=== PATIENT | female | born 1955 | race Caucasian/White ===

== ENCOUNTER 2017-09-28 15:39 | Emergency (ER) | payer MEDICAID ==
[~2017-09-28] VITALS: Ht 162.6 cm; Wt 66.3 kg
[2017-09-28] MEDS ORDERED: morphine 4 MG/ML inj SYRINge IM ONE (16:05)
[2017-09-28] MEDS ORDERED: ketorolac trometh inj. 60 MG/2 ML VIAL IM ONE (16:05)
[2017-09-28] MEDS ORDERED: orphenadrine citrate 60mg/2ml inj. IM ONE (16:05)
[2017-09-28] MEDS ORDERED: OXYC-150 PO (18:17)
[2017-09-28] MEDS ORDERED: ORPH100T2 PO (18:17)
[2017-09-28 18:40] VITALS: BP 130/74
== END 2017-09-28 18:42 | disposition home or self-care (01) ==
LOC: ER 15:40
DX: M54.5 Low back pain (principal); G89.29 Other chronic pain; F17.200 Nicotine dependence, unspecified, uncomplicated; Z88.8 Allergy status to other drugs, medicaments and biological substances; Z79.899 Other long term (current) drug therapy
CPT/HCPCS: 96372; 99284; J1885; J2270; J2360

== ENCOUNTER 2017-11-05 08:28 | Emergency (ER) | payer MEDICAID ==
[~2017-11-05] VITALS: Ht 162.6 cm; Wt 77.0 kg
[~2017-11-05 08:28] MED LIST: ORPH100T2 PO; OXYC-150 PO
[2017-11-05 08:45] VITALS: BP 142/104
[2017-11-05] MEDS ORDERED: dexamethasone sod phosphate 10mg/ml inj IM STA (09:19)
[2017-11-05] MEDS ORDERED: ketorolac trometh inj. 60 MG/2 ML VIAL IM ONE (09:20)
== END 2017-11-05 10:18 | disposition home or self-care (01) ==
LOC: ER 08:28
DX: G89.29 Other chronic pain (principal); M54.5 Low back pain; Z88.8 Allergy status to other drugs, medicaments and biological substances
CPT/HCPCS: 96372; 99284; J1100; J1885

== ENCOUNTER 2021-07-19 11:43 | Emergency (ER) | payer MEDICARE, MEDICAID ==
[~2021-07-19] VITALS: Ht 165.1 cm; Wt 80.0 kg
[2021-07-19] MEDS ORDERED: glucagon, human recombinant 1mg kit IV ONE (14:35)
[2021-07-19] MEDS ORDERED: LORazepam 2 mg/ml vial IV ONE (14:45)
[2021-07-19 15:02] LABS: BASOPHILS % (AUTO) 0.5 % (0-1); EOSINOPHILS % (AUTO) 0.5 % (0-6); HEMATOCRIT 44.8 % (35.0-45.0); HEMOGLOBIN 15.3 g/dl (12.0-16.0); LYMPHOCYTES # (AUTO) 2.4 X10'3 (1.1-4.8); LYMPHOCYTES % (AUTO) 29.8 % (21-51); MEAN CORPUSCULAR HGB CONC 34.3 g/dL (33.0-36.5); MEAN CORPUSCULAR VOLUME 90.4 FL (78-98); MEAN PLATELET VOLUME 8.4 FL (7.4-10.4); MONOCYTES # (AUTO) 0.4 X10'3 (0-0.9); MONOCYTES % (AUTO) 5.3 % (2-12); NEUTROPHILS # (AUTO) 5.2 X10'3 (1.8-7.7); NEUTROPHILS % (AUTO) 63.9 % (42-75); PLATELET COUNT 223 X10'3 (140-440); RED BLOOD COUNT 4.95 X10'6 (4.20-5.60); RED CELL DISTRIBUTION WIDTH 14.5 % (11.5-14.5); WHITE BLOOD COUNT 8.1 X10'3 (4.5-11.0)
[2021-07-19 15:10] LABS: ALANINE AMINOTRANSFERASE 43 U/L (12-78); ALKALINE PHOSPHATASE 83 IU/L (46-116); ANION GAP 13 (8-16); ASPARTATE AMINO TRANSFERASE 49 U/L (10-37); BILIRUBIN,TOTAL 0.6 MG/DL (0.1-1.0); BLOOD UREA NITROGEN 17 MG/DL (7-18); CALCIUM 9.3 MG/DL (8.5-10.1); CHLORIDE 106 MMOL/L (99-107); CREATININE 1.06 MG/DL (0.40-0.90); GLUCOSE 100 MG/DL (70-104); POTASSIUM 3.8 MMOL/L (3.5-5.1); SODIUM 144 MMOL/L (135-145); TOTAL CARBON DIOXIDE 25.2 MMOL/L (24-32); TOTAL PROTEIN 8.1 G/DL (6.4-8.2); eGFR 52 ML/MIN
[2021-07-19] MEDS ORDERED: ketorolac tromethamine 15mg/ml inj. IV ONE (15:40)
[2021-07-19] MEDS ORDERED: MIDAZolam 1 MG/ML 5ML VIAL ONE (16:26)
[2021-07-19] MEDS ORDERED: fentaNYL/PF 50MCG/1 ML 2ML syringe ONE (16:26)
[2021-07-19] MEDS ORDERED: LIDOcaine Viscous 15ml cup ONE (16:26)
--- NOTE | 2021-07-19 16:40 | NUR ---
Patient taken to ENT by ENT RN.
[2021-07-19 17:05] VITALS: BP 163/109
[2021-07-19 17:06] VITALS: BP 131/70
[2021-07-19 17:16] VITALS: BP 114/75
[2021-07-19 17:26] VITALS: BP 131/70
[2021-07-19 17:36] VITALS: BP 133/71
[2021-07-19 18:23] VITALS: BP 158/88
== END 2021-07-19 18:26 | disposition home or self-care (01) ==
LOC: ER 11:44
DX: T18.128A Food in esophagus causing other injury, initial encounter (principal); Z20.822 Contact with and (suspected) exposure to COVID-19; K22.2 Esophageal obstruction; G89.29 Other chronic pain; Z88.1 Allergy status to other antibiotic agents; Z88.8 Allergy status to other drugs, medicaments and biological substances; X58.XXXA Exposure to other specified factors, initial encounter; Y93.89 Activity, other specified; Y92.89 Other specified places as the place of occurrence of the external cause; Y99.8 Other external cause status
CPT/HCPCS: 36415; 43247; 71045; 80053; 85025; 87635; 96374; 96375; 99152; 99285; C1726; C1773; C9803; J1610; J1885; J2060; J2250; J3010; J7040; Z7512; A4620

== ENCOUNTER 2023-08-04 16:35 | Emergency (ER) | payer BC, MEDICAID ==
[~2023-08-04] VITALS: Ht 162.6 cm; Wt 68.2 kg
[~2023-08-04 16:35] MED LIST changes: -ORPH100T2 PO; +ORPH100T4 PO
[2023-08-04 17:37] LABS: BASOPHILS # (AUTO) 0.2 X10'3 (0-0.2); BASOPHILS % (AUTO) 1.4 % (0-1); EOSINOPHILS # (AUTO) 0.1 X10'3 (0-0.9); EOSINOPHILS % (AUTO) 0.7 % (0-6); HEMATOCRIT 38.5 % (35.0-45.0); HEMOGLOBIN 13.2 g/dl (12.0-16.0); LYMPHOCYTES # (AUTO) 1.7 X10'3 (1.1-4.8); MEAN CORPUSCULAR HEMOGLOBIN 31.4 PG (27.0-31.0); MEAN CORPUSCULAR HGB CONC 34.2 g/dL (33.0-36.5); MEAN CORPUSCULAR VOLUME 91.8 FL (78-98); MEAN PLATELET VOLUME 7.7 FL (7.4-10.4); MONOCYTES % (AUTO) 8.9 % (2-12); NEUTROPHILS # (AUTO) 8.3 X10'3 (1.8-7.7); PLATELET COUNT 305 X10'3 (140-440); RED BLOOD COUNT 4.19 X10'6 (4.20-5.60); RED CELL DISTRIBUTION WIDTH 12.5 % (11.5-14.5); WHITE BLOOD COUNT 11.2 X10'3 (4.5-11.0)
[2023-08-04 18:02] LABS: ALANINE AMINOTRANSFERASE 21 U/L (12-78); ALBUMIN 2.6 G/DL (3.4-5.0); ALBUMIN/GLOBULIN RATIO 0.6 (1.1-1.5); ALKALINE PHOSPHATASE 56 IU/L (46-116); ANION GAP 12 (8-16); ASPARTATE AMINO TRANSFERASE 18 U/L (10-37); BILIRUBIN,TOTAL 0.5 MG/DL (0.1-1.0); BLOOD UREA NITROGEN 6 MG/DL (7-18); BUN/CREATININE RATIO 8.7 (10.0-20.0); CHLORIDE 107 MMOL/L (99-107); CREATININE 0.69 MG/DL (0.40-0.90); GLUCOSE 133 MG/DL (70-104); PRO BRAIN NATRIURETIC PEPTIDE 485 PG/ML (0-125); SODIUM 141 MMOL/L (135-145); TOTAL CARBON DIOXIDE 22.1 MMOL/L (24-32); TOTAL PROTEIN 6.9 G/DL (6.4-8.2); eCRCL 66 ML/MIN; eGFR 84 ML/MIN
[2023-08-04 18:17] LABS: POTASSIUM 2.8 MMOL/L (3.5-5.1)
[2023-08-04] MEDS ORDERED: POTASSIUM BICARB 20meq eff tab 20 MEQ TABLET.EFF PO STA (19:11)
[2023-08-04] MEDS ORDERED: methylPREDNISolone sod succ 125mg/2ml vial IV ONE (20:00)
[2023-08-04] MEDS ORDERED: albuterol 2.5 MG/3 ML nebule NEB ONE (20:00)
[2023-08-04] MEDS ORDERED: CefTRIAXone 2gm/D5W 50ml BAG 50 ML IV ONE (20:00)
[2023-08-04] MEDS ORDERED: normal saline 1000ml 1,000 ML IV ONE (20:00)
[2023-08-04 20:15] VITALS: PULSE 90; RESP 22; O2SAT 97
[2023-08-04] MEDS ORDERED: HYDROcodone/acetaminophen 5mg/325mg tablet PO ONE (20:15)
[2023-08-04 20:24] VITALS: PULSE 92; RESP 20; O2SAT 100
[2023-08-04] MEDS ORDERED: morphine 4 MG/ML inj SYRINge IV ONE (20:35)
[2023-08-04] MEDS ORDERED: ondansetron/PF 4mg/2ml inj IV ONE (20:35)
[2023-08-04] MEDS ORDERED: ALBU8HFA INH (21:30)
[2023-08-04] MEDS ORDERED: AMOX-580 PO (21:30)
[2023-08-04] MEDS ORDERED: PRED20TA PO (21:30)
[2023-08-04 21:52] VITALS: BP 138/89; PULSE 105; RESP 18; TEMP 98.2; O2SAT 95
== END 2023-08-04 21:53 | disposition home or self-care (01) ==
LOC: ER 16:35
DX: J44.1 Chronic obstructive pulmonary disease with (acute) exacerbation (principal); R05.8 Other specified cough; G89.29 Other chronic pain; Z88.1 Allergy status to other antibiotic agents; Z79.899 Other long term (current) drug therapy
CPT/HCPCS: 36415; 71045; 80053; 83880; 84484; 85025; 93005; 94640; 96365; 96375; 99285; J0696; J2270; J2405; J2930; J7030; 94760; C1758

== ENCOUNTER 2023-08-18 11:27 | Emergency (ER) | payer BC, MEDICAID ==
[~2023-08-18] VITALS: Ht 163.8 cm; Wt 70.0 kg
[~2023-08-18 11:27] MED LIST changes: +ALBU8HFA INH
[2023-08-18 11:44] VITALS: TEMP 98.4
[2023-08-18] MEDS ORDERED: methylPREDNISolone sod succ 125mg/2ml vial IV ONE (12:00)
[2023-08-18] MEDS: albuterol 2.5 MG/3 ML nebule NEB ONE ×2 (12:05→13:36)
[2023-08-18 12:31] LABS: BASOPHILS % (AUTO) 0.5 % (0-1); EOSINOPHILS # (AUTO) 0.1 X10'3 (0-0.9); EOSINOPHILS % (AUTO) 0.8 % (0-6); HEMATOCRIT 39.4 % (35.0-45.0); HEMOGLOBIN 13.3 g/dl (12.0-16.0); LYMPHOCYTES # (AUTO) 0.7 X10'3 (1.1-4.8); LYMPHOCYTES % (AUTO) 10.5 % (21-51); MEAN CORPUSCULAR HEMOGLOBIN 31.7 PG (27.0-31.0); MEAN CORPUSCULAR HGB CONC 33.8 g/dL (33.0-36.5); MEAN CORPUSCULAR VOLUME 93.9 FL (78-98); MEAN PLATELET VOLUME 8.5 FL (7.4-10.4); MONOCYTES # (AUTO) 0.2 X10'3 (0-0.9); NEUTROPHILS # (AUTO) 5.7 X10'3 (1.8-7.7); NEUTROPHILS % (AUTO) 85.2 % (42-75); PLATELET COUNT 214 X10'3 (140-440); RED CELL DISTRIBUTION WIDTH 12.9 % (11.5-14.5); WHITE BLOOD COUNT 6.7 X10'3 (4.5-11.0)
[2023-08-18 12:53] LABS: ALANINE AMINOTRANSFERASE 39 U/L (12-78); ALBUMIN 2.9 G/DL (3.4-5.0); ALBUMIN/GLOBULIN RATIO 0.6 (1.1-1.5); ALKALINE PHOSPHATASE 71 IU/L (46-116); ANION GAP 9 (8-16); ASPARTATE AMINO TRANSFERASE 43 U/L (10-37); BILIRUBIN,TOTAL 0.4 MG/DL (0.1-1.0); BLOOD UREA NITROGEN 18 MG/DL (7-18); CALCIUM 9.3 MG/DL (8.5-10.1); CHLORIDE 104 MMOL/L (99-107); CREATININE 0.72 MG/DL (0.40-0.90); GLUCOSE 117 MG/DL (70-104); POTASSIUM 4.2 MMOL/L (3.5-5.1); SODIUM 135 MMOL/L (135-145); TOTAL CARBON DIOXIDE 21.7 MMOL/L (24-32); TOTAL PROTEIN 7.4 G/DL (6.4-8.2); eCRCL 64 ML/MIN; eGFR 80 ML/MIN
[2023-08-18 13:01] LABS: PRO BRAIN NATRIURETIC PEPTIDE 125 PG/ML (0-125)
[2023-08-18] MEDS ORDERED: LORazepam 0.5 MG tablet PO STA (13:47)
[2023-08-18] MEDS ORDERED: albuterol 2.5 MG/3 ML nebule ONE (14:04)
[2023-08-18 14:25] VITALS: BP 144/108; PULSE 103; RESP 20; O2SAT 94
== END 2023-08-18 14:55 | disposition home or self-care (01) ==
LOC: ER 11:27
DX: J98.8 Other specified respiratory disorders (principal); B97.89 Other viral agents as the cause of diseases classified elsewhere; J44.9 Chronic obstructive pulmonary disease, unspecified; G89.29 Other chronic pain; Z88.1 Allergy status to other antibiotic agents; Z79.899 Other long term (current) drug therapy
CPT/HCPCS: 36415; 71045; 80053; 83880; 84484; 85025; 93005; 96374; 99285; J2930